=== PATIENT | male | born 1940 | race Caucasian/White ===

== ENCOUNTER 2024-02-22 12:43 | Outpatient (REF) | payer MEDICARE, SELFPAY ==
[2024-02-22 13:46] LABS: Basophils Absolute Auto 0.03 K/uL (0.00-0.30); Basophils Percent Auto 0.3 % (0.0-3.0); Eosinophils Percent Auto 1.1 % (0.0-7.0); Hematocrit 47.1 % (37.0-53.0); Hemoglobin* 15.1 gm/dL (13.5-17.5); Immature Granulocytes Abs Auto 0.07 K/uL (0.00-0.30); Immature Granulocytes Pct Auto 0.8 %; Lymphocytes Percent Auto 32.4 % (20-44); Mean Corpuscular HGB Conc 32 gm/dL (32-36); Mean Corpuscular Hemoglobin 30 pg (26-34); Mean Corpuscular Volume 92 fL (80-100); Monocytes Percent Auto 4.9 % (0.0-11.0); Neutrophils Absolute Auto 5.41 K/uL (1.7-7.0); Neutrophils Percent Auto 60.5 % (42.0-72.0); Platelet Count* 226 K/uL (140-440); RDW Coefficient of Variation % 12.9 % (11.5-15.5); White Blood Count* 8.95 K/uL (4.50-11.00)
[2024-02-22 13:49] LABS: Slide Review Reflex No
[2024-02-22 14:20] LABS: Chloride* 102 mmol/L (96-114); Potassium* 4.8 mmol/L (3.6-5.1); Sodium* 137 mmol/L (135-149)
[2024-02-22 14:22] LABS: Cholesterol* 153 mg/dL (90-199)
[2024-02-22 14:23] LABS: Anion Gap 8 mEq/L (7-15); Blood Urea Nitrogen* 16 mg/dL (7-30); Carbon Dioxide* 27 mmol/L (20-32); Creatinine* 0.8 mg/dL (0.5-1.5); Estimated Glomerular Filt Rate 88 ml/min; Glucose* 158 mg/dL (60-115); HDL Cholesterol* 71 mg/dL (>=40); LDL Cholesterol Calculated 58 mg/dL (<100); Triglycerides* 121 mg/dL (40-149)
[2024-02-22 14:25] LABS: Hemoglobin A1C* 6.9 % (0-5.6)
== END 2024-02-22 12:44 | disposition home or self-care (01) ==
LOC: NPINS 12:43
PROVIDERS: PCP Family Medicine; Visit Provider Nurse Practitioner Gerontology
DX: E11.9 Type 2 diabetes mellitus without complications (principal); E78.5 Hyperlipidemia, unspecified; I25.10 Atherosclerotic heart disease of native coronary artery without angina pectoris
CPT/HCPCS: 80048; 80061; 83036; 85025

== ENCOUNTER 2024-05-30 13:30 | Outpatient (REF) | payer MEDICARE, SELFPAY ==
[2024-05-30 15:31] LABS: Hemoglobin A1C* 7.9 % (0-5.6)
== END 2024-05-30 13:31 | disposition home or self-care (01) ==
LOC: NPINS 13:30
PROVIDERS: PCP Family Medicine; Visit Provider Nurse Practitioner Gerontology
DX: E11.9 Type 2 diabetes mellitus without complications (principal)
CPT/HCPCS: 83036

== ENCOUNTER 2024-08-29 11:56 | Outpatient (REF) | payer MEDICARE, SELFPAY ==
[2024-08-29 13:28] LABS: Hemoglobin A1C* 7.3 % (0-5.6)
[2024-08-29 13:29] LABS: Chloride* 103 mmol/L (96-114); Potassium* 4.3 mmol/L (3.6-5.1); Sodium* 135 mmol/L (135-149)
[2024-08-29 13:32] LABS: Anion Gap 7 mEq/L (7-15); Blood Urea Nitrogen* 19 mg/dL (7-30); Carbon Dioxide* 25 mmol/L (20-32); Creatinine* 0.9 mg/dL (0.5-1.5); Estimated Glomerular Filt Rate 85 ml/min
[2024-08-29 13:33] LABS: Calcium* 9.5 mg/dL (8.4-10.6); Glucose* 76 mg/dL (60-115)
== END 2024-08-29 11:57 | disposition home or self-care (01) ==
LOC: NPCLIENT 11:56
PROVIDERS: PCP Family Medicine; Visit Provider Nurse Practitioner Gerontology
DX: E11.9 Type 2 diabetes mellitus without complications (principal)
CPT/HCPCS: 80048; 83036

== ENCOUNTER 2025-03-06 10:45 | Outpatient (REF) | payer MEDICARE, BC, SELFPAY ==
--- OUTSIDE RECORDS SUMMARY | 2025-01-25 10:00 | XMS_ITS | Encounter Summary ---
Author Organization [facility] Address [address] [place] [id number] Care Team Providers Care Recreational Vehicle Repairer Name Role Phone Unavailable Primary Care Provider Unavailabl e Reason for Visit * Outpatient (Routine) - Closed Specialty Diagnoses / Procedures Referred By Damien cm Referred To Contact Neurology Matthias Trotter M.D. [address] [place] [address] Phone: tel: fax: [facility] Referral ID Status Reason Start Date Expiration Date Visits Re quested Visits Authorized [id number] Closed 12/26/2024 06/27/2026 1 1 Encounter Details Date Type Department Care Team (Latest Contact Info) Description 01/25/2025 10:00 AM CDT Virtual Visit Department of Neurology in [place], [place] [address] [place] [id number] Matthias Trotter M.D. 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 - 01/25/2025 10:00 AM CDT I called Anthony's living facility. He has started his B12 replacement. They will send a message to his PCP regarding repeating the testing. They do not connect phone calls. I called his brother Godwin and left a message. 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 Treatment should focus on continuing donepezil and his B12 replacement. I would not add other medications but I would avoid typical antipsychotics which can worsen symptoms dramatically. I left a message with Godwin to call me back. 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
[2025-03-06 11:40] LABS: Chloride* 100 mmol/L (96-114); Potassium* 4.4 mmol/L (3.6-5.1); Sodium* 135 mmol/L (135-149)
[2025-03-06 11:43] LABS: Anion Gap 8 mEq/L (7-15); Blood Urea Nitrogen* 25 mg/dL (7-30); Calcium* 9.7 mg/dL (8.4-10.6); Carbon Dioxide* 27 mmol/L (20-32); Creatinine* 1.0 mg/dL (0.5-1.5); Estimated Glomerular Filt Rate 75 ml/min; Glucose* 175 mg/dL (60-115)
[2025-03-06 12:30] LABS: Vitamin B12* 391 pg/mL (243-894)
--- OUTSIDE RECORDS SUMMARY | 2025-03-07 00:15 | XMS_ITS | Clinical Summary ---
Author Organization [facility] Address [address] [place] [address] Care Team Providers Care Wheelchair Van Operator First Responder Name Role Phone Unavailable Primary Care Provider Unavailabl e Source Comments Patient records contain information from all sites at [facility]. For routine questions regarding patient records, call [phone] during business hours, M-F 8:00 AM - 5:00 PM Central Time. Record requests for emergency care only can be directed to [phone] at any time.[facility] Allergies Active Allergy Reactions Criticality Noted Date Comments Haloperidol Other (see comments) 01/25/2025 Dementia with lewy bodies Pioglitazone Other (see comments),Edema (Reselect Reaction) Low 09/29/2023 Swollen ankles Warfarin Other (see comments) 09/29/2023 Disorientation. Medications * This document contains information received from the source organization and may not represent a complete record from that organization. amLODIPine (Norvasc) 2.5 mg tablet Take 5 mg by mouth daily. 4 Active aspirin 81 mg chewable tablet Chew 81 mg daily. 5 Active citalopram (CeleXA) 10 mg tablet Take 10 mg by mouth daily. 4 Active colestipoL (Colestid) 1 gram tablet Take 1 g by mouth 2 (two) times a day. 4 Active donepeziL (Aricept) 5 mg tablet Take 5 mg by mouth at bedtime. 5 Active bisacodyL (Dulcolax) 10 mg suppository Insert 10 mg into the rectum daily. 4 Active alum-mag hydroxide-simeth (Maalox) 200-200-20 mg/5 mL suspension Take 30 mL by mouth every 6 (six) hours as needed for indigestion. 4 Active loperamide (Imodium A-D) 2 mg capsule Take 2 mg by mouth 4 (four) times a day as needed for diarrhea. 4 Active insulin glargine 100 unit/mL (3 mL) pen Inject 3 mL under the skin at bedtime. Pharmacy select brand per patient insurance/pre ference. 5 Active empagliflozin-me tformin 25-1,000 mg tablet, IR & ER, biphasic 24hr Take 25 mg by mouth daily. 4 Active metFORMIN (Glucophage) 1,000 mg tablet Take 1,000 mg by mouth 2 (two) times a day with meals. 4 Active magnesium hydroxide (Milk of Magnesia) 2,400 mg/10 mL suspension Take 10 mL by mouth at bedtime. Active rosuvastatin (Crestor) 5 mg tablet Take 5 mg by mouth daily. 4 Active cyanocobalamin (vitamin B-12) 1,000 mcg tablet Take 1 tablet (1,000 mcg total) by mouth daily. 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 Date Type Department Care Team Description 01/25/2025 10:00 AM CDT Virtual Visit Department of Neurology in [place], [place] [address] [place] [phone] Matthias Trotter M.D. 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 12/20/2024 Clinical Communication Department of Neurology in [place], [place] [address] [place] [phone] Sharon Conway R.N. 12/18/2024 2:40 PM CDT Lab Department of Laboratory Medicine and Pathology, [place], [place] [address] [place] [phone] Víctor Peoples M.D. 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 Loss Memory Discharge Disposition: Home or Self Care 12/18/2024 12:12 PM CDT - 12/18/2024 1:52 PM CDT [facility] [address] [phone] Víctor Peoples M.D. Loss Memory Discharge Disposition: Home or Self Care 12/18/2024 9:58 AM CDT - 12/18/2024 12:11 PM CDT Hospital Encounter Department of Neurology [address] [phone] Víctor Peoples M.D. Dementia (HCC); Parkinsonism Unspecified (HCC); Agnosia; Neuropathy Discharge Disposition: Home or Self Care from Last 3 Months Social History Tobacco Use Types Packs/Day Years Used Date Smoking Tobacco: Never Passive Smoke Exposure: Never Smokeless Tobacco: Never Tobacco Cessation:Counseling Given: Not Answered Sex and Gender Information Value Date Recorded Sex Assigned at Not on file Legal Sex Male 11:[address] Gender Identity Not on file Sexual Orientation Not on file Plan of Treatment Health Maintenance Due Date Last Done Comments Creatinine Level (Kidney Function Test) 1941 Diabetic Eye Exam 1941 Diabetic Office Visit with Foot Exam 1941 Office Visit for Blood Pressure Check / Re-check 1941 Urine Albumin 1941 Hepatitis B Vaccines (1 of 3 - Risk 3-dose series) 2001 Fall Risk Screen (Annual) 05/24/2024 COVID-19 Vaccine ( season) 2025 02/28/2024, 02/27/2023, 02/16/2022, Additional history exists Influenza Vaccine (#1) 2025 , 02/25/2023, 02/25/2022, Additional history exists Hemoglobin A1C 03/20/2025 12/18/2024 DTaP,Tdap,and Td Vaccines (2 - Td or Tdap) 04/19/2033 04/19/2023, 05/06/2007 Zoster Vaccines Completed 05/23/2021, 03/12/2021 RSV vaccine - (32-36 weeks) or 50+ years Completed 03/15/2023 Pneumococcal vaccine (50+ years) Completed 04/07/2023, 02/04/2015, 02/14/2013, Additional history exists IPV Vaccines Aged Out No longer eligi ble based on patient's age to complete this topic Medical Devices Implanted Type Area Trim And Burr Operator Device Identifier Shelf Expiration Date Model / Serial / Lot Triple Bypass Cardiac Other Heart Hip Implant Hip Implant Hip Description:Brother doesn't recall which hip. 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) PHOSPHO-TAU(217), P Routine 12/18/2024 3:31 PM CDT Dementia (HCC) Parkinsonism Unspecified (HCC) Agnosia Neuropathy AZ ORGANIC ACID 1 QUANT 2 Routine 12/18/2024 3:30 PM CDT THYROID FUNCTION CASCADE, S Routine 12/18/2024 3:30 PM CDT Loss Memory PERNICIOUS ANEMIA CASCADE, S Routine 12/18/2024 3:30 PM CDT Loss Memory PET CT BRAIN METABOLIC EVALUATION RAD - Routine (most inpatients and all outpatients) 12/18/2024 3:20 PM CDT Loss Memory MR BRAIN DEMENTIA WITH QUANT ANALYSIS WITHOUT IV CONTRAST RAD - Routine (most inpatients and all outpatients) 12/18/2024 1:30 PM CDT Loss Memory EMG Routine 12/18/2024 9:58 AM CDT Dementia (HCC) Parkinsonism Unspecified (HCC) Agnosia Neuropathy from Last 3 Months Results * ECG 12 Lead (12/18/2024 3:46 PM CDT) Ventricular Rate ECG/Min 56 BPM MUSE AZ Interval 198 ms MUSE QRSD Interval 88 ms MUSE QT Interval 442 ms MUSE QTC Interval 426 ms MUSE P Argyle 37 degrees MUSE R Arg[place] -27 degrees MUSE T Wave [place] 23 degrees MUSE 12/18/2024 3:46 PM CDT 12/18/2024 4:06 PM CDT Impressions MUSE - 12/18/2024 4:06 PM CDT Sinus bradycardia Low voltage QRS in chest leads ST and T wave abnormality, consider anterior ischemia No previous ECGs available Reviewed by STALIN Negron Narrative Procedure Note Emre Chapin Jr., M.D. - 07/28/2025 IMPRESSION: Sinus bradycardia Low voltage QRS in chest leads ST and T wave abnormality, consider anterior ischemia No previous ECGs available Reviewed by STALIN Negron Víctor Peoples M.D. ECG ORDERABLES Final Re sult MUSE NA * (ABNORMAL) Phospho-Tau 217 (12/18/2024 3:31 PM CDT) [id number], P 0.875(H) pg/mL 12/19/2024 10:59 AM CDT [facility] Comment: ----REFERENCE VALUE---- Negative: < or = 0.185 pg/mL Intermediate: 0.186 - 0.324 pg/mL Positive: > or = 0.325 pg/mL [id number] Interpretation SEE COMMENT 12/19/2024 10:59 AM CDT [facility] Comment: An elevated (positive) [id number] result is consistent with a positive (abnormal) amyloid positron emission tomography (PET) scan result. This result is consistent with the presence of neuropathological changes associated with Alzheimer's disease. In the proper clinical context, this test is supportive of Alzheimer's disease being related to current clinical symptoms. This test has not been demonstrated to provide information on the risk of an asymptomatic individual developing symptoms related to Alzheimer's disease in the future. Clinical performance of this test was established in a study of 427 individuals, 50 years and older, with mild cognitive impairment or early dementia. The prevalence of amyloid pathology was 64% as defined by amyloid-PET and a Centiloid of > or = 25. For detection of an abnormal amyloid- PET, the test sensitivity at the lower cutpoint (< or = 0.185 pg/mL) was 92% and the specificity at the upper cutpoint (> or = 0.325 pg/mL) was 96%. The diagnostic performance of this test has not been established in asymptomatic individuals. Elevations of [id number] may be seen in individuals with impaired kidney function associated with chronic kidney disease and should be interpreted with caution in these situations. ----ADDITIONAL INFORMATION---- This test was developed and its performance characteristics determined by [facility] in a manner consistent with CLIA requirements. This test has not been cleared or approved by the U.S. Food and Drug Administration. The testing method is a chemiluminescent enzyme immunoassay manufactured by [employer] and performed on the GestureTek analyzer. Values obtained with different assay methods or kits may be different and cannot be used interchangeably. This test is not intended as a screening or standalone diagnostic assay; correlation with clinical findings is recommended. Blood (Blood, Venous) 12/18/2024 3:31 PM CDT 12/19/2024 8:13 AM CDT Víctor Peoples M.D. LAB BLOOD NON ADD-ON Fin al Result [facility] [address] [place] [address] [facility] [address] [place] [address] * (ABNORMAL) Hemoglobin A1c (12/18/2024 3:31 PM CDT) Hemoglobin A1c, B 8.1(H) 4.0 - 5.6 % 12/18/2024 4:07 PM CDT [facility] Comment: Hemoglobin A1c values greater than or equal to 6.5 percent are diagnostic for diabetes mellitus. Diagnosis should be confirmed by repeat testing. In diabetic patients, HbA1c goals should be discussed with healthcare provider. Blood (Blood, Venous) 12/18/2024 3:31 PM CDT 12/18/2024 3:42 PM CDT us Víctor Peoples M.D. LAB BLOOD ADD-ON Final R esult [facility] [address] [place] [address], [place] DTL [facility] [address] [place] [address] * Methylmalonic Acid (MMA), Quantitative, Serum (12/18/2024 3:30 PM CDT) Methylmalonic Acid, QN, S 0.23 <=0.40 nmol/mL 12/20/2024 7:19 AM CDT [facility] Comment: No cellular B-12 deficiency. ----ADDITIONAL INFORMATION---- This test was developed and its performance characteristics determined by [facility] in a manner consistent with CLIA requirements. This test has not been cleared or approved by the U.S. Food and Drug Administration. Blood 12/18/2024 3:30 PM CDT 12/18/2024 9:40 PM CDT us Víctor Peoples M.D. LAB BLOOD NON ADD-ON Fin al Result Performing Organization Address [facility] Co de Phone Number [facility] [address] [place] [address] * Thyroid Function Baxter (12/18/2024 3:30 PM CDT) Pathologist [facility] TSH, Sensitive 2.3 0.3 - 4.2 mIU/L 12/18/2024 4:28 PM CDT DT Blood (Blood, Venous) 12/18/2024 3:30 PM CDT 12/18/2024 3:40 PM CDT us Víctor Peoples M.D. LAB BLOOD ADD-ON Final R esult Performing Organization Address [facility] Co de Phone Number [facility] [address] [place] [address], [facility] [address] [place] [address] * (ABNORMAL) Pernicious Anemia Baxter (12/18/2024 3:30 PM CDT) Vitamin B12 Assay, S 164(L) 180 - 914 ng/L 12/18/2024 9:40 PM CDT [facility] Comment:B-12 <400; MMA test was performed. Blood (Blood, Venous) 12/18/2024 3:30 PM CDT 12/18/2024 4:16 PM CDT Narrative [facility] - 12/18/2024 9:40 PM CDT Specimen Information: Specimen ID: [id number] Specimen Type: Blood Specimen Collection Start Date: 12/18/2024 3:30 PM Specimen Received Date: 12/18/2024 4:16 PM Specimen ID: [id number] Specimen Type: Blood Specimen Collection Start Date: 12/18/2024 3:30 PM Specimen Received Date: 12/18/2024 8:41 PM Víctor Peoples M.D. LAB BLOOD NON ADD-ON Fin al Result [facility] [address] [place] [address] [facility] [address] [place] [address] * PET CT Brain Metabolic Evaluation (12/18/2024 3:20 PM CDT) Anatomical Region Laterality Modality Brain, Nuclear Medicine PET RST LOS, PET ARZ LOS, Nuclear Medicine PET FLA LOS, Nuclear Medicine N/A Positron Emission Tomography (PET), Positron Emission Tomography (PET) 12/18/2024 3:15 PM CDT Impressions 12/19/2024 7:17 AM CDT Abnormal areas of moderate and marked hypometabolism worrisome for a neurodegenerative process. Narrative 12/19/2024 7:17 AM CDT EXAM: PET CT BRAIN METABOLIC EVALUATION Serum glucose at time of F-18 FDG injection was 106 mg/dL. RADIOPHARMACEUTICAL/MEDS: Route: intravenous fludeoxyglucose F 18 injection CUSTODIAL (F-18 FDG),11.92 millicurie TECHNIQUE: F-18 FDG PET/CT scan was performed of the brain with low dose, non-contrast, free-breathing CT images for attenuation correction and anatomic localization (AC/AL), with imaging beginning at approximately 30 minutes after radiotracer injection. Cortex ID performed. COMPARISON: Brain MRI 12/18/2024. INDICATION: Alzheimer's disease versus frontal temporal dementia. Memory loss. FINDINGS: Marked hypometabolism in the bilateral parietal, precuneus, occipital and lateral temporal regions. Moderate-marked hypometabolism in the frontal, posterior cingulate and anterior/mesial temporal regions. Moderate hypometabolism in the anterior cingulate, sensorimotor and primary visual regions. Otherwise patchy mild hypometabolism including the cerebellum. Normal uptake in the basal ganglia. Significant incidental findings on the low-dose unenhanced CT fusion images: None Procedure Note Samson Nash M.D. - 12/19/2024 EXAM: PET CT BRAIN METABOLIC EVALUATION Serum glucose at time of F-18 FDG injection was 106 mg/dL. RADIOPHARMACEUTICAL/MEDS: Route: intravenous fludeoxyglucose F 18 injection CUSTODIAL (F-18 FDG),11.92 millicurie TECHNIQUE: F-18 FDG PET/CT scan was performed of the brain with low dose,non-contrast, free-breathing CT images for attenuation correction andanatomic localization (AC/AL), with imaging beginning at approximately 30minutes after radiotracer injection. Cortex ID performed. COMPARISON: Brain MRI 12/18/2024. INDICATION: Alzheimer's disease versus frontal temporal dementia. Memoryloss. FINDINGS: Marked hypometabolism in the bilateral parietal, precuneus, occipital andlateral temporal regions. Moderate-marked hypometabolism in the frontal, posterior cingulate andanterior/mesial temporal regions. Moderate hypometabolism in the anterior cingulate, sensorimotor andprimary visual regions. Otherwise patchy mild hypometabolism including the cerebellum. Normal uptake in the basal ganglia. Significant incidental findings on the low-dose unenhanced CT fusionimages: None IMPRESSION: Abnormal areas of moderate and marked hypometabolism worrisome for aneurodegenerative process. us Víctor Peoples M.D. [facility] NE PROCEDURES Final Result * MR Brain Dementia with Quant Analysis without IV Contrast (12/18/2024 1:30 PM CDT) Anatomical Region Laterality Modality Head, Brain, Neuroradiology RST LOS, Neuroradiology ARZ LOS, Neuroradiology FLA LOS N/A Magnetic Resonance Impressions 12/18/2024 1:56 PM CDT Prominent atrophic changes, as described. Narrative 12/18/2024 1:56 PM CDT EXAM: MR BRAIN DEMENTIA WITH QUANT ANALYSIS WITHOUT IV CONTRAST COMPARISON: none FINDINGS: No acute infarct, hemorrhage, mass or mass effect. Right occipital region of encephalomalacia and adjacent T2/FLAIR hyperintensity likely representing gliosis. This may represent changes related to prior insult such as old infarct. Mild chronic white matter small vessel ischemic changes. Prominent generalized atrophy. Prominent frontal and right ethmoid sinus inflammatory change. Additional mild scattered paranasal sinus mucosal thickening. NeuroQuant demonstrates: most significant asymmetry is superior lateral ventricles left larger than right, hippocampi are at 1st percentile in volume for age, superior lateral ventricles 99th, inferior lateral ventricles 98th, whole brain is at 1st percentile, temporal lobe is at 1st percentile. Additional NeuroQuant data available on series 7050, 7090 and 82093. Procedure Note John Saldana M.D., M.B.A. - 12/18/2024 EXAM: MR BRAIN DEMENTIA WITH QUANT ANALYSIS WITHOUT IV CONTRAST COMPARISON: none FINDINGS: No acute infarct, hemorrhage, mass or mass effect. Rightoccipital region of encephalomalacia and adjacent T2/FLAIR hyperintensitylikely representing gliosis. This may represent changes related to priorinsult such as old infarct. Mild chronic white matter small vessel ischemic changes. Prominent generalizedatrophy. Prominent frontal and right ethmoid sinus inflammatory change.Additional mild scattered paranasal sinus mucosal thickening. NeuroQuantdemonstrates: most significant asymmetry is superior lateral ventricles left larger than right, hippocampi are at1st percentile in volume for age, superior lateral ventricles 99th,inferior lateral ventricles 98th, whole brain is at 1st percentile,temporal lobe is at 1st percentile. Additional NeuroQuant data available on series 7050, 7090 and 44602. IMPRESSION: Prominent atrophic changes, as described. us Víctor MAHER MRI PROCEDURES Final Result * EMG (12/18/2024 9:58 AM CDT) 12/18/2024 10:0 0 AM CDT Narrative [facility] EMG - 12/18/2024 12:21 PM CDT Table formatting from the original result was not included. 18-Dec-2024 Electromyography Final Report Study Number: 1 EMG Job Checker: Brett Kruger I. 127 or [phone] Referred by: VÍCTOR PEOPLES () Referred for: Polyneuropathy Referral Code: 200 RX: 200 SUMMARY: Prior to starting the procedure, the patient's identity was verified, pertinent available records were reviewed, the nature of the procedure was explained, the appropriate sites of the exam were confirmed directly with the patient, and a pre-procedure pause was performed for final verification of all of the above. Right-sided nerve conduction studies revealed reduced amplitude motor responses in the right leg with conduction velocities at the lower limits of normal. The sural response was low (1uV at B point, and 4uV at A point), but acceptable for age. The right ulnar motor amplitude was mildly reduced and associated with mild proximal conduction slowing. The median sensory amplitude was low. No conduction block or temporal dispersion was seen. Tibial and ulnar F-wave latencies were within F estimates. The fibular F wave was absent. Needle exam was partly limited by poor patient tolerance and poor activation. Within the confines of this, there was reduced recruitment of long duration, high amplitude motor unit potentials in distal predominant muscles of the right leg. Polyphasic motor unit potentials were additionally seen in tibialis anterior. There were no fibrillation potentials in any muscles examined. CLINICAL INTERPRETATION: This is an abnormal study. There is electrodiagnostic evidence of a chronic, length-dependent, axonal sensorimotor peripheral neuropathy. I have reviewed the findings of the examining physician and agree with the interpretation. Simona Sears/Jonatan Kruger (127 or [phone])/ACV NERVE CONDUCTIONS Record Rep Normal Normal Distal Normal F-Wave F-Wave Temp Nerve Type Site Stim Side Amp Amp CV CV Lat Lat Lat Est ( C) Fibular Motor EDB R 1.3 (> 2.0) 41 (> 41) 5.4 (< 6.6) NR 58.3 31.0 Remark: Moved G1 Tibial Motor AH R 2.5 (> 4.0) 40 (> 40) 4.9 (< 6.1) 57.7 60.2 31.0 Remark: Moved G1 Sural Sensory Ankle R 1 (> 0.0) (> 40) 3.9 (< 4.5) 34.8 Ulnar Motor ADM R 5.4 (> 6.0) 43 (> 51) 3.0 (< 3.6) 35.5 35.6 33.0 Remark: Moved G1 Median Sensory Dig II R 8 (> 15.0) 61 (> 56) 3.2 (< 3.6) 35.2 NEEDLE EMG Ins Spont MUP Recruitment Duration Amplitude Phases Muscle Side Act Fib Fasc Normal Activ Reduced Rapid Long Short High Low % Turns Gluteus rusty R NL 0 0 NL Poor Gluteus medius R NL 0 0 NL Vastus medialis R NL 0 0 NL +/- +/- +/- Gastrocnemius (medial head) R NL 0 0 Poor + + + Tibialis anterior R NL 0 0 + + + 50% ++ This interpretation has been electronically signed: Brett Kruger M.D. at 12/18/2024 12:20:58 PM CDT Procedure Note Brett Kruger M.D. - 12/18/2024 18-Dec-2024 Electromyography Final Report Study Number: 1 EMG Job Checker: Brett Kruger I. 127 or [phone] Referred by: VÍCTOR PEOPLES () Referred for: Polyneuropathy Referral Code: 200 RX: 200 SUMMARY: Prior to starting the procedure, the patient's identity wasverified, pertinent available records were reviewed, the nature of theprocedure was explained, the appropriate sites of the exam were confirmeddirectly with the patient, and a pre-procedure pause was performed forfinal verification of all of the above. Right-sided nerve conduction studies revealed reduced amplitude motorresponses in the right leg with conduction velocities at the lower limitsof normal. The sural response was low (1uV at B point, and 4uV at Apoint), but acceptable for age. The right ulnar motor amplitude wasmildly reduced and associated with mild proximal conduction slowing. Themedian sensory amplitude was low. No conduction block or temporaldispersion was seen. Tibial and ulnar F-wave latencies were within Festimates. The fibular F wave was absent. Needle exam was partly limited by poor patient tolerance and pooractivation. Within the confines of this, there was reduced recruitment oflong duration, high amplitude motor unit potentials in distal predominantmuscles of the right leg. Polyphasic motor unit potentials wereadditionally seen in tibialis anterior. There were no fibrillationpotentials in any muscles examined. CLINICAL INTERPRETATION: This is an abnormal study. There iselectrodiagnostic evidence of a chronic, length-dependent, axonalsensorimotor peripheral neuropathy. I have reviewed the findings of the examining physician and agree with theinterpretation. Simona Sears/Jonatan Kruger (127 or [phone])/ACV NERVE CONDUCTIONS Record Rep Normal Normal Distal Normal F-Wave F-Wave Temp Nerve Type Site Stim Side Amp Amp CV CV Lat Lat Lat Est ( C) Fibular Motor EDB R 1.3 (> 2.0) 41 (> 41) 5.4 (< 6.6) NR 58.3 31.0 Remark: Moved G1 Tibial Motor AH R 2.5 (> 4.0) 40 (> 40) 4.9 (< 6.1) 57.7 60.2 31.0 Remark: Moved G1 Sural Sensory Ankle R 1 (> 0.0) (> 40) 3.9 (< 4.5) 34.8 Ulnar Motor ADM R 5.4 (> 6.0) 43 (> 51) 3.0 (< 3.6) 35.5 35.6 33.0 Remark: Moved G1 Median Sensory Dig II R 8 (> 15.0) 61 (> 56) 3.2 (< 3.6) 35.2 NEEDLE EMG Ins Spont MUP Recruitment Duration Amplitude Phases Muscle Side Act Fib Fasc Normal Activ Reduced Rapid Long Short High Low %Turns Gluteus rusty R NL 0 0 NL Poor Gluteus medius R NL 0 0 NL Vastus medialis R NL 0 0 NL +/- +/- +/- Gastrocnemius (medial head) R NL 0 0 Poor + + + Tibialis anterior R NL 0 0 + + + 50% ++ This interpretation has been electronically signed: Brett Kruger M.D. at 12/18/2024 12:20:58 PM CDT Víctor Peoples M.D. NEUROLOGY ORDERABLES Edward pam Result - Final [facility] EMG from Last 3 Months Insurance MEDICARE [facility] Advance Directives For more information, please contact: [phone] Documents on File Type Date Recorded Patient Property Assistant Expl anation Advance Directives 07/10/2024 11:22 AM Advance Directives 07/06/2024 9:42 PM Tong Jesus HCPOA/ADVOCATE/AGENT/ PHOTOGRAPHY EDITOR/SURROG ATE Healthcare Agents on File Name Relationship Healthcare Agent Relationshi p Communication Tong Jesus [facility] Health Care Agent [facility] Health Care Agent
== END 2025-03-06 10:46 | disposition home or self-care (01) ==
LOC: NPINS 10:45
PROVIDERS: PCP Family Medicine; Visit Provider Nurse Practitioner Gerontology
DX: F03.90 Unspecified dementia, unspecified severity, without behavioral disturbance, psychotic disturbance, mood disturbance, and anxiety (principal); E11.9 Type 2 diabetes mellitus without complications
CPT/HCPCS: 80048; 82607; 83036

== ENCOUNTER 2025-04-14 03:02 | Outpatient (CLI) | payer MEDICARE, BC, SELFPAY | END 2025-04-14 03:03 | disposition home or self-care (01) | LOC: AMB 04-16 18:38 | PROVIDERS: PCP Family Medicine; Visit Provider Family Medicine | DX: R53.1 Weakness (principal); R41.82 Altered mental status, unspecified | CPT/HCPCS: A0998 ==

== ENCOUNTER 2025-04-14 10:35 | Outpatient (CLI) | payer MEDICARE, BC, SELFPAY | END 2025-04-14 10:36 | disposition home or self-care (01) | LOC: AMB 04-23 13:38 | PROVIDERS: PCP Family Medicine; Visit Provider Family Medicine | DX: U07.1 COVID-19 (principal) | CPT/HCPCS: A0425; A0427 ==

== ENCOUNTER 2025-04-17 14:06 | Outpatient (CLI) | payer MEDICARE, BC, SELFPAY | END 2025-04-17 14:07 | disposition home or self-care (01) | LOC: AMB 04-23 18:13 | PROVIDERS: PCP Family Medicine; Visit Provider Student in an Organized Health Care Education/Training Program | DX: I63.541 Cerebral infarction due to unspecified occlusion or stenosis of right cerebellar artery (principal); R53.1 Weakness | CPT/HCPCS: A0425; A0428 ==

== ENCOUNTER 2025-05-01 10:47 | Outpatient (REF) | payer MEDICARE, BC, SELFPAY ==
[2025-05-01 11:38] LABS: Hematocrit* 45.3 % (37.0-53.0); Hemoglobin* 14.5 gm/dL (13.5-17.5); Immature Granulocytes Pct Auto 0.5 %; Mean Corpuscular HGB Conc 32 gm/dL (32-36); Mean Corpuscular Hemoglobin 30 pg (26-34); Mean Corpuscular Volume 93 fL (80-100); RDW Coefficient of Variation % 12.3 % (11.5-15.5); Red Blood Count* 4.89 m/uL (4.30-5.90); White Blood Count* 11.64 K/uL (4.50-11.00)
[2025-05-01 11:48] LABS: Immature Granulocytes Abs Auto 0.10 K/uL (0.00-0.30); Lymphocytes Absolute Auto 3.00 K/uL (0.90-2.90); Slide Review Reflex No
[2025-05-01 11:50] LABS: Chloride* 105 mmol/L (96-114); Potassium* 4.3 mmol/L (3.6-5.1); Sodium* 138 mmol/L (135-149)
[2025-05-01 11:53] LABS: Anion Gap 10 mEq/L (7-15); Blood Urea Nitrogen* 19 mg/dL (7-30); Carbon Dioxide* 23 mmol/L (20-32); Creatinine* 0.8 mg/dL (0.5-1.5); Estimated Glomerular Filt Rate 88 ml/min
[2025-05-01 11:54] LABS: Calcium* 9.8 mg/dL (8.4-10.6); Glucose* 126 mg/dL (60-115)
--- OUTSIDE RECORDS SUMMARY | 2025-05-02 00:37 | XMS_ITS | Clinical Summary ---
Author Organization [facility] Address [address] [place] [address] Care Team Providers Care Advisory Intern Name Role Phone Unavailable Primary Care Provider Unavailabl e Source Comments Patient records contain information from all sites at [facility]. For routine questions regarding patient records, call [phone] during business hours, M-F 8:00 AM - 5:00 PM Central Time. Record requests for emergency care only can be directed to [phone] at any time.[facility] Allergies Active AllergyReactionsCriticalityNoted DateCommentsHaloperidolOther (see comments)01/25/2025 Dementia with lewy bodies PioglitazoneOther (see comments),Edema (Reselect Reaction)Low09/29/2023 Swollen ankles WarfarinOther (see comments)09/29/2023 Disorientation. Medications * This document contains information received from the source organization and may not represent a complete record from that organization. MedicationSigDispense QuantityRefillsLast FilledStart DateEnd DateStatus amLODIPine (Norvasc) 2.5 mg tablet Take 5 mg by mouth daily.02/12/2024ctive aspirin 81 mg chewable tablet Chew 81 mg daily.5Active citalopram (CeleXA) 10 mg tablet Take 10 mg by mouth daily.02/11/2024ctive colestipoL (Colestid) 1 gram tablet Take 1 g by mouth 2 (two) times a day.02/11/2024ctive donepeziL (Aricept) 5 mg tablet Take 5 mg by mouth at bedtime.06/21/2024tive bisacodyL (Dulcolax) 10 mg suppository Insert 10 mg into the rectum daily.03/06/2024ctive alum-mag hydroxide-simeth (Maalox) 200-200-20 mg/5 mL suspension Take 30 mL by mouth every 6 (six) hours as needed for indigestion.03/06/2024 Active loperamide (Imodium A-D) 2 mg capsule Take 2 mg by mouth 4 (four) times a day as needed for diarrhea.03/06/2024ctive insulin glargine 100 unit/mL (3 mL) pen Inject 3 mL under the skin at bedtime. Pharmacy select brand per patient insurance/preference.06/16/2024tive empagliflozin-metformin 25-1,000 mg tablet, IR & ER, biphasic 24hr Take 25 mg by mouth daily.04/15/2024ctive metFORMIN (Glucophage) 1,000 mg tablet Take 1,000 mg by mouth 2 (two) times a day with meals.02/11/2024ctive magnesium hydroxide (Milk of Magnesia) 2,400 mg/10 mL suspension Take 10 mL by mouth at bedtime.Active rosuvastatin (Crestor) 5 mg tablet Take 5 mg by mouth daily.03/20/2024ctive cyanocobalamin (vitamin B-12) 1,000 mcg tablet Take 1 tablet (1,000 mcg total) by mouth daily. 30 tablet 11012/22/2024 1:37 PM CDT12/22/2024tive Active Problems ProblemNoted DateDiagnosed DateParkinsonism Lwrgbohoqut68/14/2025gnosia 07/07/20242134Wfriupofbt77/14/2025Visuospatial Dsihwdi1607/07/2024Loss Memory 07/07/20240412Piaeiyw79/14/2025Dementia Family Iipanke5207/07/2024Diabetes Mellitus Type 2 With Diabetic Pgbapiqbvrczfs61/14/2025 Encounters DateTypeDepartmentCare UqxqAvsozwzrcxw45/21/2025bstract [place], [place] [address] [place] [address] [phone] Provider, Historical from Last 3 Months Social History Tobacco UseTypesPacks/DayYears UsedDateSmoking Tobacco: NeverPassive Smoke Exposure: NeverSmokeless Tobacco: Never Tobacco Cessation:Counseling Given: Not Answered Sex and Gender InformationValueDate RecordedSex Assigned at BirthNot on file Legal ZyxYmak1506/24/2016 11:05 PM CSTGender IdentityNot on fileSexual Orientation Not on file Plan of Treatment Health MaintenanceDue DateLast DoneCommentsCreatinine Level (Kidney Function Test)2Diabetic Eye Exam2Diabetic Office Visit with Foot Exam 2Office Visit for Blood Pressure Check / Re-check1941Urine Hahyfig31 1941Hepatitis B Vaccines (1 of 3 - Risk 3-dose series)2001 Fall Risk Screen (Annual)5COVID-19 Vaccine ( season) , 02/27/2023, 02/16/2022, Additional history existsInfluenza Vaccine (#1)/11/2023, 02/25/2023, 02/25/2022, Additional history existsHemoglobin A1CDTaP,Tdap,and Td Vaccines (2 - Td or Tdap)/, 05/06/2007Zoster LmrlzzflLievlrdgu82/31/2021, 1RSV vaccine - (32-36 weeks) or 50+ fyammTqzgburdw37/23/2023 Pneumococcal vaccine (50+ years)Nguzbmopl68/15/2023, 02/04/2015, 02/14/2013, Additional history existsIPV VaccinesAged OutNo longer eligible based on patient's age to complete this topic Medical Devices ImplantedTypeAreaManufacturerDevice IdentifierShelf Expiration DateModel / Serial / LotTriple BypassCardiac OtherHeartHip ImplantHip ImplantHipDescription: Brother doesn't recall which hip. 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 ??Diagnosis should be confirmed by repeat testing. ??In diabetic patients, HbA1c goals should be discussed with healthcare provider. Specimen (Source)Anatomical Location / LateralityCollection Method / Volume Collection TimeReceived TimeBlood (Blood, Venous)12/18/2024 3:31 PM CDT 12/18/2024 3:42 PM CDT Narrative Authorizing ProviderResult TypeResult StatusJosarah Peoples M.D.LAB BLOOD ADD-ONFinal ResultPerforming OrganizationAddressCity/State/ZIP CodePhone Number [facility] [address] [place] [address], [facility] [address] [place] [address] from Last 3 Months or Most Recently Relevant to Health Maintenance Insurance * Guarantor: Anthony Jesus Jr. [facility] TypeRelation to Patient Date of BirthPhoneBilling AddressPersonal/TlnwxiRdlg25/02/1941 [facility] [place] [address] Advance Directives For more information, please contact: [phone] TypeDate RecordedPatient RepresentativeExplanationAdvance Directive07/10/2024 11:22 AMAdvance Directives2 9:42 PM* Tong Jesus * Primo Jesus HCPOA/ADVOCATE/AGENT/DIVING COACH/SURROGATE NameRelationshipHealthcare Agent RelationshipCommunicationThomas Edin [facility] HospitalHealth Care Agent* Primo PaulrotAtrium Health Cabarr[facility] Alternate Health Care Agent*
== END 2025-05-01 10:48 | disposition home or self-care (01) ==
LOC: NPINS 10:47
PROVIDERS: PCP Family Medicine; Visit Provider Family Medicine
DX: E53.8 Deficiency of other specified B group vitamins (principal); I10 Essential (primary) hypertension; E11.42 Type 2 diabetes mellitus with diabetic polyneuropathy
CPT/HCPCS: 80048; 83036; 85025